=== PATIENT | female | born 1960 | race American Indian/Alaskan Native ===

== ENCOUNTER 2017-11-16 14:12 | Emergency (ER) | payer OTHER ==
[2017-11-16 14:42] VITALS: RESP 18; O2SAT 99
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
--- NOTE | 2017-11-16 16:06 | RAD ---
PROCEDURE: Radiographs of the Lumbar Spine. HISTORY: pain COMPARISON: No prior. FINDINGS: BONES: Normal alignment. No listhesis. No fracture. Endplate spondylosis L4-5 and to lesser extent L3-4 and L2-3 levels DISC SPACES: L4-5 disc space narrowing OTHER FINDINGS: None. IMPRESSION: Senescent changes.
--- NOTE | 2017-11-16 16:07 | RAD ---
PROCEDURE: Cervical Spine Radiographs. HISTORY: Pain. COMPARISON: None. FINDINGS: BONES: Alignment maintained. No fracture. Dens Intact. Endplate ridging C5-6 and C6-7 with intervening mild disc space narrowing at these 2 levels. DISC SPACES: C5-6 and C6-7 disc space narrow SOFT TISSUES: Normal. No prevertebral soft tissue swelling. OTHER FINDINGS: None. IMPRESSION: Senescent changes.
[2017-11-16 16:45] VITALS: BP 138/71; PULSE 79; TEMP 98.2
== END 2017-11-16 16:30 | disposition home or self-care (01) ==
LOC: C.ER 14:12
DX: S16.1XXA Strain of muscle, fascia and tendon at neck level, initial encounter (principal); S39.012A Strain of muscle, fascia and tendon of lower back, initial encounter; V89.2XXA Person injured in unspecified motor-vehicle accident, traffic, initial encounter
CPT/HCPCS: 72040; 72100; 96372; 99285; J1885